=== PATIENT | male | born 1945 | race Caucasian/White ===

== ENCOUNTER 2016-07-21 14:39 | Outpatient (CLI) | payer OTHER ==
--- NOTE | 2016-07-21 17:56 | DIAGNOSTIC IMAGING REPORT ---
PROCEDURE: US ART LOWER EXT WITH BEN-B/L INDICATION: Arthritis, non palpable pulses, evaluate for healing of the foot reconstruction. History of diabetes and hypertension. TECHNIQUE: Color Doppler duplex imaging of the lower extremity arterial system was performed bilaterally. Pre exercise ABIs were acquired. The patient was unable to exercise. COMPARISON: None. FINDINGS: RIGHT LOWER EXTREMITY: ABIs: Pre exercise posterior tibial: 1.4 Pre exercise dorsalis pedis: 1.1 VESSELS/ WAVEFORMS: Triphasic arterial inflow and triphasic arterial flow through the popliteal artery. Triphasic flow in the anterior tibial artery proximally. Monophasic flow distally. Monophasic flow in the posterior tibial artery. Calf arteries are diminutive and calcified. Moderate calcific irregularity in the common femoral artery. No single focal arterial stenosis in the right lower extremity. RIGHT LOWER EXTREMITY PEAK SYSTOLIC VELOCITIES: External iliac: 70 cm/second. Common femoral artery: 108 cm/second. Profunda femoral artery: 83 cm/second. Proximal superficial femoral artery: 97 cm/second. Mid superficial femoral artery: 73 cm/second. Distal superficial femoral artery: 75 cm/second. Popliteal artery: 60 cm/second. Proximal posterior tibial artery: 64 cm/second. Proximal anterior tibial artery: 74 cm/second. Peroneal artery: 50 cm/second. Distal posterior tibial artery: 215 cm/second. Dorsalis pedis artery: 124 cm/second. LEFT LOWER EXTREMITY: ABIs: Pre exercise posterior tibial: 1.5 Pre exercise dorsalis pedis: 1.1 VESSELS/ WAVEFORMS: Triphasic arterial inflow and triphasic arterial flow through the superficial femoral artery. Biphasic flow in the popliteal artery. Biphasic flow in the posterior tibial artery but triphasic flow in the anterior tibial artery to the ankle. Calcifications seen in the calf arteries and occasionally in the more proximal arteries. No focal arterial stenosis. LEFT LOWER EXTREMITY PEAK SYSTOLIC VELOCITIES: External iliac: 78 cm/second. Common femoral artery: 107 cm/second. Profunda femoral artery: 48 cm/second. Proximal superficial femoral artery: 93 cm/second. Mid superficial femoral artery: 96 cm/second. Distal superficial femoral artery: 66 cm/second. Popliteal artery: 61 cm/second. Proximal posterior tibial artery: 96 cm/second. Proximal anterior tibial artery: 63 cm/second. Peroneal artery: 43 cm/second. Distal posterior tibial artery: 60 cm/second. Dorsalis pedis artery: 148 cm/second. IMPRESSION: 1. Given ABIs, no arterial insufficiency at rest. The patient was unable to exercise due to foot fractures. 2. Given wave forms and velocity elevations, there is likely hemodynamically significant stenosis in the right posterior tibial artery, and a borderline significant stenosis in the right anterior tibial artery. 3. Significant velocity elevation in the left dorsalis pedis artery implying an arterial stenosis more proximal. This does not alter the triphasic wave form. Hemodynamic significance is uncertain.
== END 2016-07-21 23:00 ==
LOC: US SRH 14:39
DX: M19.072 Primary osteoarthritis, left ankle and foot (principal); M19.071 Primary osteoarthritis, right ankle and foot